=== PATIENT | male | born 2000 | race Two or more races ===

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

== ENCOUNTER 2019-02-14 11:37 | Outpatient (CLI) | payer OTHER ==
[~2019-02-14 11:37] MED LIST changes: +AIRBORNE EFFER1 EACH PO; +KETO10TA2 PO; +LORATADINE10 M2 PO; +MUCINEX DM ER1 EAC1 PO; +OSEL75CA PO; +TESSALON PERLE100 M1 PO
== END 2019-02-14 11:39 | disposition home or self-care (01) ==
LOC: RAD 11:37
DX: R21 Rash and other nonspecific skin eruption (principal); L29.8 Other pruritus; Z13.89 Encounter for screening for other disorder; Z13.220 Encounter for screening for lipoid disorders; Z11.3 Encounter for screening for infections with a predominantly sexual mode of transmission; M79.641 Pain in right hand; R05 Cough

== ENCOUNTER 2019-02-15 08:45 | Outpatient (CLI) | payer OTHER | END 2019-02-15 15:36 | disposition home or self-care (01) | LOC: LAB 08:45 | DX: R05 Cough (principal); R21 Rash and other nonspecific skin eruption; L29.8 Other pruritus; Z13.89 Encounter for screening for other disorder; Z13.220 Encounter for screening for lipoid disorders; Z11.3 Encounter for screening for infections with a predominantly sexual mode of transmission; M79.641 Pain in right hand ==

== ENCOUNTER 2019-11-27 10:06 | Emergency (ER) | payer OTHER ==
[~2019-11-27] VITALS: Ht 167.6 cm; Wt 66.2 kg
== END 2019-11-27 12:46 | disposition home or self-care (01) ==
LOC: ER 10:06
DX: J02.8 Acute pharyngitis due to other specified organisms (principal)

== ENCOUNTER 2022-04-13 12:50 | Outpatient (CLI) | payer OTHER | END 2022-04-13 12:57 | disposition home or self-care (01) | LOC: RAD 12:50 | PROVIDERS: ATTEND Orthopaedic Surgery | DX: Q65.89 Other specified congenital deformities of hip (principal); M25.851 Other specified joint disorders, right hip; M25.852 Other specified joint disorders, left hip ==